=== PATIENT | male | born 1990 | race Caucasian/White ===

== ENCOUNTER 2019-08-19 10:10 | Emergency (ER) | payer OTHER ==
[~2019-08-19] VITALS: Ht 175.3 cm; Wt 81.6 kg
[2019-08-19 12:09] VITALS: BP 124/69
[2019-08-19] MEDS ORDERED: METHOCARBAMOL 500 MG TAB PO ONE (12:45)
[2019-08-19] MEDS ORDERED: KETOROLAC TROMETH 60MG/2ML VIAL IM ONE (12:45)
== END 2019-08-19 13:37 | disposition home or self-care (01) ==
LOC: ER 10:10
DX: M62.830 Muscle spasm of back (principal); F17.210 Nicotine dependence, cigarettes, uncomplicated
CPT/HCPCS: 72100; 96372; 99283; J1885